=== PATIENT | female | born 1985 | race Caucasian/White ===

== ENCOUNTER 2019-05-07 16:53 | Inpatient (IN) | payer OTHER ==
[2019-05-07] MEDS ORDERED: DEXT15TA PO (19:37)
[2019-05-07] MEDS ORDERED: FLUO40CA2 PO (19:37)
[2019-05-07] MEDS ORDERED: ALBU2.5V8 INH (19:37)
[2019-05-07] MEDS ORDERED: IV RINGERS,LACTATED 1000ML 1,000 ML IV SCH (19:45)
[2019-05-07] MEDS ORDERED: PROPOFOL 20 ML IV ONE (19:46)
[2019-05-07 20:26] VITALS: BP 135/65
--- NOTE | 2019-05-08 07:06 | CONS ---
DATE OF CONSULTATION: 05/07/2019 REASON FOR CONSULTATION: Esophageal meat impaction. HISTORY OF PRESENT ILLNESS: A 33-year-old female with past medical history significant for asthma, attention deficit disorder, gastroesophageal reflux disease, status post tubal ligation, seen with meat impaction which has been present since last night at 8:00 p.m.; did not pass through the night or through the morning and with increased discomfort. She has come to the hospital at [facility], been transferred to [place] for definitive therapy. The patient states she feels it is in the substernal location. She has been unable to handle her oral secretions and is here tonight for extraction. PAST MEDICAL HISTORY: Gastroesophageal reflux disease, asthma, attention deficit disorder, status post tubal ligation. ALLERGIES: IODINE. MEDICATIONS: Include Adderall and Flonase inhaler. SOCIAL HISTORY: Nondrinker and nonsmoker. FAMILY HISTORY: Noncontributory. REVIEW OF SYSTEMS: Per records. PHYSICAL EXAMINATION: GENERAL: Reveals a well-nourished, well-developed female who is alert, cooperative, in mild distress. VITAL SIGNS: Pulse 100, respirations 20, and blood pressure is 120/80. HEENT: Reveals normocephalic, atraumatic head. Pupils and extraocular muscles are not tested. Sclerae are anicteric. NECK: Supple without apparent crepitus. LUNGS: Reveal decreased breath sounds. CARDIOVASCULAR: S1 and S2 without S3, S4 or appreciable murmur. ABDOMEN: Reveals a soft abdomen, normal bowel sounds, without appreciable hepatosplenomegaly. EXTREMITIES: Reveals no cyanosis, clubbing or edema. IMPRESSION AND PLAN: Dysphagia with meat impaction. Differential includes eosinophilic esophagitis, malignancy, achalasia, and Blackburn's. We will therefore recommend upper endoscopy with possible foreign body extraction and/or dilatation. Risks and benefits of procedure were discussed with the patient including risk of hemorrhage and perforation requiring operation. She is willing to proceed at this time. JEAN CLAUDE CASTILLO MD DR: CHERRIE/balwinder JOB#: [id number] / [id number]
--- NOTE | 2019-05-14 14:31 | PDOC1 ---
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 NO rx needed from me, seen by GI, Chris ER MD in another facility Past Medical History GI: GERD Past Surgical History Past Surgical History: Hysterectomy Family History Family History: Hypertension Social History Smoke: No ALCOHOL: none Drugs: None Current Medications Current Medications Current Medications Ringer's Solution 1,000 ml @ 75 mls/hr [id number] IV Last administered on 05/07/19at 20:13; Start 05/07/19 at 19:45; Stop 05/08/19 at 00:33; Status DC Propofol 20 ml @ As Directed STK-MED ONCE IV ; Start 05/07/19 at 19:46; Stop 05/07/19 at 19:46; Status DC Active Scripts Active Reported Proair Hfa (Albuterol Sulfate) 8.5 Gm Hfa.aer.ad 1 Puff INH PRN Q6HRS PRN Adderall 15 Mg Tablet (Dextroamphetamine/Amphetamine) 15 Mg Tablet 15 Mg PO BID Fluoxetine Hcl 40 Mg Capsule 1 Cap PO [id number] Allergies Allergies: Coded Allergies: iodine (Verified Allergy, Intermediate, Hives, 05/07/19) ROS Review of System as per HPI, rest 14 pt neg Physical Exam General: Alert, Oriented X3, Cooperative, No acute distress HEENT: Atraumatic, PERRLA, EOMI Lungs: Clear to auscultation, Normal air movement Heart: S1S2, RRR, no thrills, no gallops, no murmurs Cardiovascular: S1 Breasts: Normal, Rt breast nml w/o mass, Lt breast nml w/o mass, Nipples normal Abdomen: Normal bowel sounds, Soft, No tenderness, No hepatosplenomegaly, No masses Rectal Exam: not examined PELVIC: Nml ext genitalia Extremities: No clubbing, No cyanosis, No edema, Normal pulses, No tenderness/swelling Skin: No rashes, No breakdown, No significant lesion Neuro: Normal gait, Normal speech, Strength at 5/5 X4 ext, Normal tone, Sensation intact, Cranial nerves 3-12 NL, Reflexes 2+ Psych/Mental Status: Mental status NL, Mood NL Vitals Vitals Vital Signs Date Time Temp Pulse Resp B/P (MAP) Pulse Ox O2 Delivery O2 Flow Rate FiO2 05/07/19 20:26 74 18 135/65 99 Room Air 05/07/19 20:11 97.4 97.4 05/07/19 19:56 2 VTE Prophylaxis Ordered VTE Prophylaxis Devices: Yes VTE Pharmacological Prophylaxi: Yes Assessment/Plan Assessment/Plan food impaction successful egd and retrieval FLORA FOX MD May 14, 2019 14:31
--- NOTE | 2019-05-14 14:31 | PDOC3 ---
Discharge Summary Visit Information Date of Admission: May 08, 2019 Date of Discharge: May 08, 2019 Admitting Diagnosis Comment: food impaction successful egd and retrieval Brief Hospital Course Allergies Allergies Coded Allergies Type Severity Reaction Last Updated Verified iodine Allergy Intermediate Hives 05/07/19 Yes Brief Hospital Course Ms. 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 NO rx needed from me, seen by GI, Chris ER MD in another facility Discharge Information Condition at Discharge: Improved, Stable Disposition/Orders: D/C to Home Scheduled Dextroamphetamine/Amphetamine (Adderall 15 Mg Tablet) 15 Mg Tablet, 15 MG PO BID for ADD, (Reported) Entered as Reported by: DARRELL GARCIA on 05/07/191936 Last Taken: Unknown Dose on 05/06/19 Last Action: New Order on 05/07/191936 by DARRELL GARCIA Fluoxetine Hcl (Fluoxetine Hcl) 40 Mg Capsule, 1 CAP PO [id number] for DEPRESSION, #30 Ref 2 (Reported) Entered as Reported by: DARRELL GARCIA on 05/07/191936 Last Taken: Unknown Dose on 05/06/19 Last Action: New Order on 05/07/191936 by DARRELL GARCIA Scheduled PRN Albuterol Sulfate (Proair Hfa) 8.5 Gm Hfa.aer.ad, 1 PUFF INH PRN Q6HRS PRN for SHORTNESS OF BREATH, (Reported) Entered as Reported by: DARRELL GARCIA on 05/07/191936 Last Action: New Order on 05/07/191936 by FLORA FRITZ MD May 14, 2019 14:31
== END 2019-05-07 20:44 | disposition home or self-care (01) | DRG 206 ==
LOC: 4 NORTH 19:20
PROVIDERS: ADMIT Internal Medicine; ATTEND Internal Medicine
PROC: 0DC58ZZ Extirpation of Matter from Esophagus, Via Natural or Artificial Opening Endoscopic (ICD-10-PCS; principal; 2019-05-07 19:34)
PROC: 0D758ZZ Dilation of Esophagus, Via Natural or Artificial Opening Endoscopic (ICD-10-PCS; 2019-05-07 19:34)
DX: T17.828A Food in other parts of respiratory tract causing other injury, initial encounter (principal); R13.10 Dysphagia, unspecified; J45.909 Unspecified asthma, uncomplicated; K21.9 Gastro-esophageal reflux disease without esophagitis; Z98.51 Tubal ligation status; X58.XXXA Exposure to other specified factors, initial encounter; Z88.8 Allergy status to other drugs, medicaments and biological substances; Z79.899 Other long term (current) drug therapy; Y93.89 Activity, other specified; Y92.89 Other specified places as the place of occurrence of the external cause; Y99.8 Other external cause status
CPT/HCPCS: 43247; 43450; J2704; J7120; G0378